=== PATIENT | female | born 1985 | race Asian ===

== ENCOUNTER 2021-12-07 05:34 | Emergency (ER) | payer SELFPAY ==
[~2021-12-07] VITALS: Ht 170.2 cm; Wt 119.8 kg
[2021-12-07] MEDS ORDERED: AMOX-494 MT (06:12)
[2021-12-07] MEDS ORDERED: IBUP-2029 MT (06:12)
[2021-12-07] MEDS ORDERED: IBUPROFEN 600MG TABLET PO ONE (06:15)
[2021-12-07 06:30] VITALS: BP 145/95
== END 2021-12-07 06:56 | disposition home or self-care (01) ==
LOC: ER 05:34
DX: K08.89 Other specified disorders of teeth and supporting structures (principal); K04.7 Periapical abscess without sinus; J45.909 Unspecified asthma, uncomplicated; Z98.890 Other specified postprocedural states
CPT/HCPCS: 99283

== ENCOUNTER 2022-07-21 12:11 | Emergency (ER) | payer MEDICAID ==
[~2022-07-21] VITALS: Ht 170.2 cm; Wt 113.0 kg
[~2022-07-21 12:11] MED LIST: AMOX-494 MT; IBUP-2029 MT
[2022-07-21 15:00] VITALS: BP 126/63
== END 2022-07-21 19:03 | disposition left against medical advice (07) ==
LOC: ER 12:11
DX: Z53.21 Procedure and treatment not carried out due to patient leaving prior to being seen by health care provider (principal)
CPT/HCPCS: 71101; 99281